=== PATIENT | female | born 1955 | race Caucasian/White ===

== ENCOUNTER 2018-09-01 17:09 | Inpatient (IN) | payer MEDICARE ==
--- NOTE | 2018-09-01 18:31 | NUR ---
PT ARRIVED FROM DR TAN'S OFFICE A DIRECT ADMIT, IV STARTED TO RIGHT FA. SHE IS ALERT AND ORIENTED X3, CALL LIGHT PLACED IN REACH, WILL CONTINUE TO MONITOR AND FOLLOW PLAN OF CARE.
[2018-09-01 19:09] LABS: INR 0.91 (0.85-1.17); PROTIME 11.8 SECONDS (11.6-15.0)
[2018-09-01 19:10] LABS: BASOPHILS 0.6 % (0-2); EOSINOPHILS 0.1 % (0-7); HEMATOCRIT 37.1 % (36.0-48.0); HEMOGLOBIN 12.8 g/dL (12-16); IMMATURE GRANULOCYTES 0.1 % (0-5); LYMPHOCYTES 14.8 % (15-50); MCH 34.8 pg (26.0-34.0); MCHC 34.5 g/dL (31.0-37.0); MCV 100.8 fL (80.0-100.0); MONOCYTES 10.5 % (2-11); NEUTROPHILS 73.9 % (40-80); PLATELET COUNT 328 10x3/uL (130-400); RBC 3.68 10x6/uL (4.00-5.40); RDW 12.8 % (11.5-14.5)
[2018-09-01 19:29] LABS: ALBUMIN 3.6 g/dL (3.4-5.0); ALKALINE PHOSPHATASE 56 U/L (46-116); ALT (SGPT) 37 U/L (10-68); BILIRUBIN - TOTAL 0.23 mg/dL (0.2-1.3); C-REACTIVE PROTEIN 2.3 mg/dL (0.0-0.9); CALC OSMOLALITY 276 mosm/kg (275-300); CALCIUM 9.5 mg/dL (8.5-10.1); CARBON DIOXIDE 21.9 mmol/L (21.0-32.0); CHLORIDE - SERUM 101 mmol/L (98-107); CREATININE - SERUM 0.6 mg/dL (0.6-1.3); GLUCOSE 165 mg/dL (74-106); MAGNESIUM - SERUM 1.5 mg/dL (1.8-2.4); PHOSPHOROUS 2.1 mg/dL (2.5-4.9); POTASSIUM - SERUM 3.8 mmol/L (3.5-5.1); PROTEIN - SERUM 6.8 g/dL (6.4-8.2); SODIUM 136 mmol/L (136-145); THYROID STIMULATING HORMONE 0.77 uIU/mL (0.36-3.74); UREA NITROGEN 14 mg/dL (7-18); eGFR NON AFRICAN AMERICAN > 90 mL/min (90-120)
--- NOTE | 2018-09-01 19:45 | NUR ---
TOOK REPORT AT 1920. NURSE SAID PT HAD NOT BEEN SEEN BY HER. I HAVE GLEANED INFO ON PT AND SEEN HER AT THIS TIME PT IS IN ISOLATION FOR POSSIBLE TB. BED IS LOW AND LOCKED CALL LIGHT WAS PROVIDED BY ME. LCTA SKIN IS WARM AND DRY BOWEL SOUNDS X4 PT DENIES ANY PAIN OR NEEDS AT THIS TIME. IV TO RT WRIST CONVRTRD AND NOW RUNNING NORMAL SALINE AT 125CC/HR. EDUCATION PROVIDED AND AWARE STOOL AND URINE ARE NEEDED
[2018-09-01 20:04] LABS: COMPLEMENT C4 25.1 mg/dL (17.4-52.2)
[2018-09-01 20:20] LABS: ERYTHROCYTE SEDIMENTATION RATE 39 mm/hr (0-30)
[2018-09-02] VITALS: BP 144/66
[2018-09-02 04:00] VITALS: BP 147/72
[2018-09-02 05:33] LABS: BASOPHILS 0.5 % (0-2); EOSINOPHILS 0.3 % (0-7); HEMATOCRIT 34.7 % (36.0-48.0); HEMOGLOBIN 11.8 g/dL (12-16); IMMATURE GRANULOCYTES 0.5 % (0-5); LYMPHOCYTES 54.2 % (15-50); MCH 34.5 pg (26.0-34.0); MCV 101.5 fL (80.0-100.0); MEAN PLATELET VOLUME 9.4 fL (7.4-10.4); MONOCYTES 4.2 % (2-11); NEUTROPHILS 40.3 % (40-80); RBC 3.42 10x6/uL (4.00-5.40); RDW 12.8 % (11.5-14.5)
[2018-09-02 05:34] LABS: PLATELET COUNT 122 10x3/uL (130-400); WBC 3.8 10x3/uL (4.8-10.8)
[2018-09-02 05:46] LABS: % SATURATION 39 % (15-55); IRON 95 ug/dl (35-150); TOTAL IRON BIND CAPACITY 239 ug/dl (260-445); UNSAT IRON BIND CAPACITY 144 ug/dl (150-375)
[2018-09-02 05:49] LABS: ALBUMIN 3.2 g/dL (3.4-5.0); ALKALINE PHOSPHATASE 51 U/L (46-116); ALT (SGPT) 31 U/L (10-68); AMYLASE - SERUM 29 U/L (25-115); BILIRUBIN - TOTAL 0.37 mg/dL (0.2-1.3); CALCIUM 9.1 mg/dL (8.5-10.1); CARBON DIOXIDE 23.3 mmol/L (21.0-32.0); CHLORIDE - SERUM 106 mmol/L (98-107); CREATININE - SERUM 0.6 mg/dL (0.6-1.3); LIPASE 124 U/L (73-393); PROTEIN - SERUM 6.6 g/dL (6.4-8.2); SODIUM 141 mmol/L (136-145); eGFR NON AFRICAN AMERICAN > 90 mL/min (90-120)
[2018-09-02 05:50] LABS: CALC OSMOLALITY 279 mosm/kg (275-300); GLUCOSE 96 mg/dL (74-106); UREA NITROGEN 9 mg/dL (7-18)
--- NOTE | 2018-09-02 07:50 | NUR ---
PT SITTING ON SIDE OF BED, SHIFT ASSESSMENT PERFORMED, DENIES ANY NEEDS AT THIS TIME, WILL CONT TO FOLLOW POC
[2018-09-02 08:18] VITALS: BP 128/70
--- NOTE | 2018-09-02 11:01 | NUR ---
APPROACHED PT ROOM AND ENTERED WITHOUT ANY PPE. THEN STEPPED OUT OF THE PT ROOM, GRABBED THE AIRBORNE SIGN OFF THE PT DOOR AND THREW IT ON THE NURSES STATION STATING, "SHE DOES NOT HAVE TB!" NURSE CALLED PORSHA WITH INFECTION CONTROL. PER INFECTION CONTROL, PT IS TO REMAIN ON AIRBORNE ISOLATION UNTIL PT IS SEEN BY THEN CAN MAKE THE DECISION ON WHICH ISOLATION IS APPROPRIATE FOR PT.
[2018-09-02 11:05] LABS: APPEARANCE CLEAR (CLEAR); BILIRUBIN NEGATIVE (NEGATIVE); COLOR STRAW (YELLOW); GLUCOSE NEGATIVE (NEGATIVE); KETONE NEGATIVE (NEGATIVE); NITRITE NEGATIVE (NEGATIVE); PROTEIN NEGATIVE (NEGATIVE); SPECIFIC GRAVITY 1.005 (1.005-1.020); UROBILINOGEN NORMAL (NORMAL)
[2018-09-02 11:51] VITALS: BP 141/66
--- NOTE | 2018-09-02 12:40 | NUR ---
PT RESTING IN BED, DENIES ANY NEEDS AT THIS TIME, WILL CONT TO FOLLOW POC
--- NOTE | 2018-09-02 17:41 | MORECARE ---
CASE MANAGEMENT DISCHARGE SUMMARY PATIENT: ANGELICA LEE UNIT: [id number] ADM DATE: 09/01/18 AGE: 63 : 57 SEX: F ROOM/BED: D.2148 AUTHOR: ANDREW,DOC PHYSICIAN: REFERRING PHYSICIAN: COOKIE TAN MD DATE OF SERVICE: 09/02/18 Discharge Plan Patient Name: ANGELICA LEE Facility: [facility]:[place] : 1955 Planned Disposition: Home Anticipated Discharge Date: Discharge Date: Expected LOS: Initial Reviewer: [id number] Initial Review Date: 09/02/2018 Generated: 09/02/18 6:41 pm Comments DCP- Discharge Planning Updated by [id number]: Jose Lee on 09/02/18 4:[address] Patient Name: ANGELICA LEE Admission Status: Elective Accout number: [id number] Admission Date: 09-01-2018 : 1955 Admission Diagnosis:NONTRAUMATIC SUBDURAL HEMORRHAGE, UNSPECIFIED Attending: COOKIE TAN Current LOS: 1 Anticipated DC Date: Planned Disposition: Home Primary Insurance: [facility] [employer] Discharge Planning Comments: CM RECEIVED ORDER STATING TO CONTACT PT'S HOME HEALTH PROVIDER. CM MET WITH PT IN ROOM TO DISCUSS DISCHARGE PLANNING AND NEEDS. PT REPORTS LIVING AT HOME INDEPENDENTLY AND ALONE. PT HAS NO MEDICAL EQUIPMENT AND NO OUTSIDE SERVICES ASSISTING IN THE HOME. CM DISCUSSED AVAILABILITY OF HOME HEALTH, REHAB SERVICES AND MEDICAL EQUIPMENT. PT DOES NOT HAVE HOME HEALTH. PT DENIES DISCHARGE NEEDS, STATES HER INSURANCE HOUSECALLS NURSE HAS APPOINTMENT NEXT WEEK AND WOULD LIKE CM TO CANCEL IT PT IS IN THE HOSPITAL. PT REPORTS SHE WILL HAVE TO TAKE A CAB HOME AT DISCHARGE. PT STATES SHE HAS NO SUPPORT SYSTEM AND THAT HER FAMILY HAS "DISOWNED" HER. CM CALLED [facility] [employer], , CANCELLED PT'S HOME NURSE VISIT SCHEDULE FOR 09-06-18. PT PLANS TO DISCHARGE HOME ALONE, DENIES DISCHARGE NEEDS AT THIS TIME, WILL TAKE TAXI HOME. CM TO FOLLOW AND ASSIST IF NEEDED. Raw Mill Operator: Jose Lee DCPIA - Discharge Planning Initial Assessment Updated by [id number]: Jose Lee on 09/02/18 5:36 pm * Is the patient Alert and Oriented? Yes * How many steps to enter\\exit or inside your home? ELEVATOR * PCP DR. TAN * Pharmacy [facility] * Preadmission Environment Home Alone * ADLs Independent * Equipment None * Other Equipment NO MEDICAL EQUIPMENT PROVIDER PREFERENCE * List name and contact numbers for known caregivers / representatives who currently or will assist patient after discharge: FRANCESCO FENTON, BROTHER IN LAW, PHONE UNKNOWN, LIVES IN [place] * Verbal permission to speak to the caregivers and representatives has been obtained from the patient. N/A * Community resources currently utilized None * Please name any agencies selected above. NONE * Additional services required to return to the preadmission environment? No * Can the patient safely return to the preadmission environment? Yes * Has this patient been hospitalized within the prior 30 days at any hospital? No Patient Name: ANGELICA LEE Page [phone] at 1741 All edits/amendments must be made on the electronic document DICTATION DATE: 09/02/181740 ADDICTIONS RECOVERY SPECIALIST: TJ 09/02/181740 RPT#: [id number] DC DATE: STATUS: ADM IN [facility] [address] [place] [address] END OF REPORT
--- NOTE | 2018-09-02 18:00 | NUR ---
CAME BY TO SEE PT AND APPROVED PT TO BE ON NO ISOLATION.
--- NOTE | 2018-09-02 18:05 | NUR ---
PT RESTING IN BED, DENIES ANY NEEDS AT THIS TIME, WILL CONT TO FOLLOW POC
--- NOTE | 2018-09-02 19:49 | NUR ---
AWAKE AND ALERT. SKIN WARM AND DRY BRUISES AROUND ORBITALS AND LAC ON LIP STILL PREVAIL PT REPORTS FEELING MUCH BETTER TODAY. LCTA AND SKIN WARM AND DRY AND BOWEL SOUNDS X4 PULSES INTACT BED IS LOW AND LOCKED AND SR X2 PT IS IN POSESTION OF CALL LIGHT
[2018-09-02 20:00] VITALS: BP 135/69
[2018-09-03] VITALS: BP 144/79
[2018-09-03 04:00] VITALS: BP 153/60
[2018-09-03] MEDS ORDERED: BACLOFEN10 MG PO (05:23)
[2018-09-03] MEDS ORDERED: ULTRAM50 MG PO (05:24)
[2018-09-03] MEDS ORDERED: BUSPAR 15 MG TA15 MG PO (05:26)
[2018-09-03 06:18] LABS: BASOPHILS 0.5 % (0-2); EOSINOPHILS 0.4 % (0-7); HEMATOCRIT 32.9 % (36.0-48.0); HEMOGLOBIN 11.4 g/dL (12-16); IMMATURE GRANULOCYTES 0.2 % (0-5); LYMPHOCYTES 33.5 % (15-50); MCH 34.7 pg (26.0-34.0); MCHC 34.7 g/dL (31.0-37.0); MEAN PLATELET VOLUME 8.7 fL (7.4-10.4); MONOCYTES 12.3 % (2-11); NEUTROPHILS 53.1 % (40-80); RBC 3.29 10x6/uL (4.00-5.40); RDW 12.9 % (11.5-14.5)
[2018-09-03 06:26] LABS: PLATELET COUNT 249 10x3/uL (130-400); WBC 5.5 10x3/uL (4.8-10.8)
[2018-09-03 06:32] LABS: APTT 23.6 SECONDS (22.8-39.4); INR 0.95 (0.85-1.17); PROTIME 12.2 SECONDS (11.6-15.0)
[2018-09-03 06:33] LABS: CALC OSMOLALITY 281 mosm/kg (275-300); CALCIUM 8.9 mg/dL (8.5-10.1); CARBON DIOXIDE 24.3 mmol/L (21.0-32.0); CHLORIDE - SERUM 109 mmol/L (98-107); CREATININE - SERUM 0.6 mg/dL (0.6-1.3); GLUCOSE 104 mg/dL (74-106); MAGNESIUM - SERUM 1.5 mg/dL (1.8-2.4); POTASSIUM - SERUM 3.2 mmol/L (3.5-5.1); SODIUM 143 mmol/L (136-145); eGFR NON AFRICAN AMERICAN > 90 mL/min (90-120)
[2018-09-03 06:36] LABS: PHOSPHOROUS 3.9 mg/dL (2.5-4.9); UREA NITROGEN 3 mg/dL (7-18)
--- NOTE | 2018-09-03 07:19 | NUR ---
PT AWAKE AND ORIENTED. STATES THAT SHE WOULD LIKE HER PAIN MEDICATION SWITCHED TO TRAMADOL, HER HOME MEDICATION, WHICH SHE STATES WORKS REALLY WELL COMPARED TO THE MEDICATION SHE'S BEEN RECIEVING HERE. NO OTHER COMPLAINTS OR CONCERNS AT THIS TIME. CL IN REACH, SRX2.
[2018-09-03 08:12] LABS: HEPATITIS C ANTIBODY <0.1 S/CO RAT (0.0-0.9)
[2018-09-03 09:12] VITALS: BP 134/72
[2018-09-03 09:12] LABS: FOLATE (FOLIC ACID) - SERUM >20.0 ng/mL (>3.0)
--- NOTE | 2018-09-03 10:42 | NUR ---
I have reviewed this patient and I concur with the Shift Assessment completed by the Licensed Practical Nurse today this shift.
[2018-09-03 11:37] VITALS: BP 149/79
[2018-09-03 16:44] VITALS: BP 148/78
--- NOTE | 2018-09-03 19:35 | NUR ---
EVENING ROUNDS COMPLETED. REPORT RECEIVED. PT SITTING UP IN BED WITH EYES OPEN, RR EVEN AND UNLABORED. ORDERED FLUIDS INFUSING THROUGH RIGHT WRIST PIV. INTRODUCED SELF TO PT. PT DENIES FURTHER NEEDS AT THIS TIME. IV TUBING HAS BEEN LABELED AND DATED PER POLICY. NO S/S OF DISTRESS NOTED. CALL LIGHT IN REACH. WILL CTM.
[2018-09-03 20:00] VITALS: BP 129/62
[2018-09-04] VITALS: BP 143/71
[2018-09-04 04:00] VITALS: BP 174/83
--- NOTE | 2018-09-04 05:56 | NUR ---
PT SITTING UP IN BED WITH EYES OPEN, RR EVEN AND UNLABORED, BED IN LOW POSITION. NO S/S OF DISTRESS NOTED. PT DENIES FURTHER NEEDS AT THIS TIME. CALL LIGHT IN REACH. WILL CTM.
[2018-09-04 06:53] LABS: BASOPHILS 0.7 % (0-2); EOSINOPHILS 0.5 % (0-7); IMMATURE GRANULOCYTES 0.2 % (0-5); LYMPHOCYTES 24.9 % (15-50); MCH 34.3 pg (26.0-34.0); MCHC 34.4 g/dL (31.0-37.0); MCV 99.7 fL (80.0-100.0); MEAN PLATELET VOLUME 8.8 fL (7.4-10.4); MONOCYTES 12.7 % (2-11); PLATELET COUNT 230 10x3/uL (130-400); RBC 3.21 10x6/uL (4.00-5.40); RDW 12.9 % (11.5-14.5); WBC 5.8 10x3/uL (4.8-10.8)
[2018-09-04 07:02] LABS: APTT 22.7 SECONDS (22.8-39.4); PROTIME 12.7 SECONDS (11.6-15.0)
[2018-09-04 07:05] LABS: CALC OSMOLALITY 283 mosm/kg (275-300); CALCIUM 9.1 mg/dL (8.5-10.1); CARBON DIOXIDE 26.7 mmol/L (21.0-32.0); CHLORIDE - SERUM 108 mmol/L (98-107); CREATININE - SERUM 0.5 mg/dL (0.6-1.3); GLUCOSE 103 mg/dL (74-106); MAGNESIUM - SERUM 1.6 mg/dL (1.8-2.4); PHOSPHOROUS 4.2 mg/dL (2.5-4.9); POTASSIUM - SERUM 3.4 mmol/L (3.5-5.1); SODIUM 144 mmol/L (136-145); UREA NITROGEN 3 mg/dL (7-18); eGFR NON AFRICAN AMERICAN > 90 mL/min (90-120)
[2018-09-04 07:46] VITALS: BP 161/82
--- NOTE | 2018-09-04 10:01 | NUR ---
I have reviewed this patient and I concur with the Shift Assessment completed by the Licensed Practical Nurse today this shift.
--- NOTE | 2018-09-04 10:19 | NUR ---
PT HAS SEVERAL QUESTIONS THIS A.M. MOSTLY ABOUT HER CONDITION AND WETHER OR NOT SHE HAS TO STAY. PT STATES DR. GONZALES WAS NOT IN LONG ENOUGH TO PROPPERLY ANSWER HER QUESTIONS WHEN SHE TRIED TO AKS THEM AND SHE FELT TOO INTIMIDATED TO ASK HIM TO STAY AND EXPLAIN. PT REQUESTED I COME IN WHEN THE DR DOES NEXT TIME, SO I CAN ASSIST HER IN BEING ASSERTIVE WITH HER QUESTIONS. TOLD PT I WOULD DO MAKE SURE THAT HAPPENED. ANSWERED ALL MEDICAL QUESTIONS TO THE BEST OF MY ABILITY. CL IN REACH, SRX2.
[2018-09-04 11:46] VITALS: BP 148/71
--- NOTE | 2018-09-04 13:56 | NUR ---
PT AWAKE AND ORIENTED. HAS BEEN SNOOZING OFF AND ON ALL DAY. NO FURTHER COMPLAINTS AT THIS TIME, STILL HOPING TO SPEAK TO DR GONZALES LATER AND HAVE HIM ANSWER HER QUESTIONS MORE IN DEPTH. NO CONCERNS/QUESTIONS AT THIS TIME. CL IN REACH, SRX2.
[2018-09-04 15:21] VITALS: BP 130/72
--- NOTE | 2018-09-04 19:00 | NUR ---
EVENING ROUNDS COMPLETED. REPORT RECEIVED. PT SITTING UP IN BED WITH EYES OPEN, RR EVEN AND UNLABORED. NO S/S OF DISTRESS NOTED. INTRODUCED SELF TO PT. PT DENIES FURTHER NEEDS AT THIS TIME. BED IN LOW POSITION. CALL LIGHT IN REACH. WILL CTM.
[2018-09-04 20:00] VITALS: BP 152/80
[2018-09-05 00:11] VITALS: BP 158/83
--- NOTE | 2018-09-05 03:29 | NUR ---
I have reviewed this patient and I concur with the Shift Assessment completed by the Licensed Practical Nurse today this shift.
[2018-09-05 04:00] VITALS: BP 142/76
[2018-09-05 06:24] LABS: BASOPHILS 0.5 % (0-2); EOSINOPHILS 0.7 % (0-7); HEMATOCRIT 32.8 % (36.0-48.0); HEMOGLOBIN 10.9 g/dL (12-16); IMMATURE GRANULOCYTES 0.3 % (0-5); MCH 34.1 pg (26.0-34.0); MCHC 33.2 g/dL (31.0-37.0); MEAN PLATELET VOLUME 8.9 fL (7.4-10.4); MONOCYTES 11.3 % (2-11); NEUTROPHILS 57.2 % (40-80); PLATELET COUNT 259 10x3/uL (130-400); WBC 5.9 10x3/uL (4.8-10.8)
--- NOTE | 2018-09-05 06:24 | NUR ---
PT SITTING UP IN BED WITH EYES OPEN, RR EVEN AND UNLABORED. BED IN LOW POSITION. DENIES FURTHER NEEDS AT THIS TIME. NO S/S OF DISTRESS NOTED. CALL LIGHT IN REACH. WILL CTM.
[2018-09-05 06:34] LABS: CALC OSMOLALITY 285 mosm/kg (275-300); CALCIUM 8.6 mg/dL (8.5-10.1); CARBON DIOXIDE 31.6 mmol/L (21.0-32.0); CHLORIDE - SERUM 107 mmol/L (98-107); CREATININE - SERUM 0.6 mg/dL (0.6-1.3); GLUCOSE 103 mg/dL (74-106); MAGNESIUM - SERUM 1.9 mg/dL (1.8-2.4); POTASSIUM - SERUM 3.5 mmol/L (3.5-5.1); SODIUM 145 mmol/L (136-145); eGFR NON AFRICAN AMERICAN > 90 mL/min (90-120)
[2018-09-05 06:35] LABS: APTT 24.1 SECONDS (22.8-39.4); PROTIME 12.7 SECONDS (11.6-15.0)
[2018-09-05 06:37] LABS: UREA NITROGEN 4 mg/dL (7-18)
[2018-09-05 06:39] LABS: MCV 102.5 fL (80.0-100.0)
--- NOTE | 2018-09-05 07:23 | NUR ---
PT AWKAE AND ORIENTED. STATES SHE FEELS OK, BUT WILL BE HAPPY WHEN THE HOSPITAL STAY IS OVER. NO COMPLAINTS/CONCERNS/QUESTIONS OR COMMENTS THIS MORNING. CL IN REACH, SRX2.
[2018-09-05 09:01] VITALS: BP 144/75
[2018-09-05 09:08] LABS: HSV 1 DNA (PCR) Negative (Negative); HSV 2 DNA (PCR) Negative (Negative)
[2018-09-05 11:41] VITALS: BP 157/88
[2018-09-05 13:10] LABS: ERYTHROPOIETIN 38.3 mIU/mL (2.6-18.5)
--- NOTE | 2018-09-05 13:36 | MORECARE ---
CASE MANAGEMENT DISCHARGE SUMMARY PATIENT: ANGELICA LEE UNIT: [id number] ADM DATE: 09/01/18 AGE: 63 : 57 SEX: F ROOM/BED: D.2140 AUTHOR: TEO MORALES PHYSICIAN: REFERRING PHYSICIAN: COOKIE TAN MD DATE OF SERVICE: 09/05/18 Discharge Plan Patient Name: ANGELICA LEE Facility: [facility]:[place] : 1955 Planned Disposition: Home Anticipated Discharge Date: Discharge Date: Expected LOS: Initial Reviewer: [id number] Initial Review Date: 09/02/2018 Generated: 09/05/18 2:36 pm Comments DCP- Discharge Planning Updated by [id number]: An Rosas on 09/05/18 12:[address] SHAH CAME TO ME ASKING WHAT THE STATUS IS ON THE PATIENT. I EXPAINED THAT I DID NOT KNOW MUCH, BUT IT WAS DOCUMENTED PT WAITING ON BED AT [facility] AND THEN SHE REFUSED. PER DR SHAH, THE PATIENT DID NOT REFUSE, AND THIS HAS BEEN CONFIRMED. WILL WORK ON TRANSFER, BUT FIRST HAVE TO FIGURE OUT WHAT HAS BEEN DONE IN REGARDS TO THIS. I PLACED A CALL TO JASON HARDINOFFICE CASHIER, WHO STATED SHE WAS UNAWARE OF THE TRANSFER, BUT GAVE ADMIN AUTH FOR TRANSFER. @2229 I PLACED A CALL TO [facility] BED JOAQUIM JAUREGUI TRANSFERRED ME TO THE TRANSFER TEAM AT THE CALL CENTER TO CHECK ON THIS. I SPOKE WITH JASSON WHO STATED SHE DOES NOT SEE THAT ANYTHING HAS BEEN STARTED ON THE PATIENT FOR TRANSFER, BUT THEY WOULD BE GLAD TO ASSIST. I STATED THAT I WAS GOING TO HAVE TO FIGURE OUT WHO WOULD DO THE DOC TO DOC FIRST AND CALL BACK. I PAGED DOUG WHITFIELD AFTER I HUNG UP THE PHONE. @7098 I SPOKE WITH NAHID SOLANO APN FOR [facility]. I ASKED IF DR RIVERA WOULD DO THE DOC TO DOC. NAHID QUESTIONED TO WHY NOTHING HAD BEEN DONE ABOUT THIS LAST WEEK. I EXPLAINED THAT NO ONE TALKED TO ME ABOUT TRANSFER LAST WEEK, THAT THE BEST I KNEW IT WAS INITIATED OVER THE WEEKEND (TRUTH IS, IT WAS DECIDED THAT THE PATIENT NEEDED TO TRANSFER AFTER 1600 ON WEDNESDAY AND I HAD ALREADY LEFT. PER OSCAR, CM NO ONE DISCUSSED WITH HIM ABOUT TRANSFERRING AND THERE WAS NO ORDER PUT IN FOR CASEMANAGEMENT TO TRANSFER- SO I AM UNSURE WHO DR GONZALES TALKED TO OVER THE WEEKEND THAT SAID WE WERE JUST WAITING ON A BED HE DOCUMENTED IN HIS NOTE). NAHID STATED THAT THE PATIENT WAS NEW TO THEM AND THEY WERE GOING TO HAVE TO LOOK AT THE PATIENT FIRST AND THEY WOULD HAVE TO LET ME KNOW. I WILL WAIT FOR FURTHER INSTRUCTION IN REGARDS TO TRANSFER. DCP- Discharge Planning Updated by [id number]: Jose Lee on 09/02/18 4:[address] Patient Name: ANGELICA LEE Admission Status: Elective Accout number: [id number] Admission Date: 09-01-2018 : 1955 Admission Diagnosis:NONTRAUMATIC SUBDURAL HEMORRHAGE, UNSPECIFIED Attending: COOKIE TAN Current LOS: 1 Anticipated DC Date: Planned Disposition: Home Primary Insurance: [facility] [employer] Discharge Planning Comments: CM RECEIVED ORDER STATING TO CONTACT PT'S HOME HEALTH PROVIDER. CM MET WITH PT IN ROOM TO DISCUSS DISCHARGE PLANNING AND NEEDS. PT REPORTS LIVING AT HOME INDEPENDENTLY AND ALONE. PT HAS NO MEDICAL EQUIPMENT AND NO OUTSIDE SERVICES ASSISTING IN THE HOME. CM DISCUSSED AVAILABILITY OF HOME HEALTH, REHAB SERVICES AND MEDICAL EQUIPMENT. PT DOES NOT HAVE HOME HEALTH. PT DENIES DISCHARGE NEEDS, STATES HER INSURANCE HOUSECALLS NURSE HAS APPOINTMENT NEXT WEEK AND WOULD LIKE CM TO CANCEL IT PT IS IN THE HOSPITAL. PT REPORTS SHE WILL HAVE TO TAKE A CAB HOME AT DISCHARGE. PT STATES SHE HAS NO SUPPORT SYSTEM AND THAT HER FAMILY HAS "DISOWNED" HER. CM CALLED [facility] [employer] [facility], , CANCELLED PT'S HOME NURSE VISIT SCHEDULE FOR 09-06-18. PT PLANS TO DISCHARGE HOME ALONE, DENIES DISCHARGE NEEDS AT THIS TIME, WILL TAKE TAXI HOME. CM TO FOLLOW AND ASSIST IF NEEDED. Trimmer Operator: Jose Lee DCPIA - Discharge Planning Initial Assessment Updated by [id number]: Jose Lee on 09/02/18 5:36 pm * Is the patient Alert and Oriented? Yes * How many steps to enter\\exit or inside your home? ELEVATOR * PCP DR. TAN * Pharmacy [facility] * Preadmission Environment Home Alone * ADLs Independent * Equipment None * Other Equipment NO MEDICAL EQUIPMENT PROVIDER PREFERENCE * List name and contact numbers for known caregivers / representatives who currently or will assist patient after discharge: FRANCESCO FENTON, BROTHER IN LAW, PHONE UNKNOWN, LIVES IN [place] * Verbal permission to speak to the caregivers and representatives has been obtained from the patient. N/A * Community resources currently utilized None * Please name any agencies selected above. NONE * Additional services required to return to the preadmission environment? No * Can the patient safely return to the preadmission environment? Yes * Has this patient been hospitalized within the prior 30 days at any hospital? No Last DP export: 09/02/18 4:41 p Patient Name: ANGELICA LEE Page [phone] at 1336 All edits/amendments must be made on the electronic document DICTATION DATE: 09/05/181334 TEASELER: TJ 09/05/181334 RPT#: [id number] DC DATE: STATUS: ADM IN [facility] [address] [place] [address] END OF REPORT
--- NOTE | 2018-09-05 14:08 | NUR ---
NUTRITION F/U CHART REVIEWED. PT VISIT. TOLERATING REG DIET WITH GOOD INTAKE BREAKFAST. PT REPORTS IMPROVING PO INTAKE. STATES SHE IS "JUST NOW STARTING TO ADD MEAT" TO HER MEALS. WILL CONTINUE TO PROVIDE DIET, HONOR FOOD PREFERENCES, MONITOR PO INTAKE. RD FOLLOWING
--- NOTE | 2018-09-05 14:29 | MORECARE ---
CASE MANAGEMENT DISCHARGE SUMMARY PATIENT: ANGELICA LEE UNIT: [id number] ADM DATE: 09/01/18 AGE: 63 : 57 SEX: F ROOM/BED: D.2148 AUTHOR: TEO MORALES PHYSICIAN: REFERRING PHYSICIAN: COOKIE TAN MD DATE OF SERVICE: 09/05/18 Discharge Plan Patient Name: ANGELICA LEE Facility: [facility]:[place] : 1955 Planned Disposition: Home Anticipated Discharge Date: Discharge Date: Expected LOS: Initial Reviewer: [id number] Initial Review Date: 09/02/2018 Generated: 09/05/18 3:28 pm Comments DCP- Discharge Planning Updated by [id number]: An Rosas on 09/05/18 1:[address] @[id number] SMITH CAME AND GAVE ME DR YO RIVERA NAME AND PHONE NUMBER FOR THE DOC TO DOC WITH TRANSFER. @ 7287 PLACED A CALL TO THE [facility] PHYSICIAN CALL CENTER ([phone]), SPOKE TO JASSON WHO TOOK THE BASIC INFORMATION AND THEN TRANSFERRED ME TO THE NURSE NEHEMIAH. I ANSWERED ALL HER QUESTIONS AND READ HER EXACTLY WHAT WAS DOCUMENTED IN THE PHYSICIANS NOTES. SHE STILL REQUIRED MORE INFORMATION. SHE STATED THAT SHE WOULD CALL AND SPEAK TO THE DOCTOR BEFORE SHE NOTIFIED HER DOCTOR. AFTER CALL WAS ENDED, I WALKED OVER AND LET DR RIVERA KNOW WHAT SHE HAS SAID. I WILL WAIT FOR A RETURN CALL OR FURTHER INSTRUCTIONS BY DR RIVERA OR NAHID SOLANO APN. DCP- Discharge Planning Updated by [id number]: An Rosas on 09/05/18 12:[address] SHAH CAME TO ME ASKING WHAT THE STATUS IS ON THE PATIENT. I EXPAINED THAT I DID NOT KNOW MUCH, BUT IT WAS DOCUMENTED PT WAITING ON BED AT [facility] AND THEN SHE REFUSED. PER DR SHAH, THE PATIENT DID NOT REFUSE, AND THIS HAS BEEN CONFIRMED. WILL WORK ON TRANSFER, BUT FIRST HAVE TO FIGURE OUT WHAT HAS BEEN DONE IN REGARDS TO THIS. I PLACED A CALL TO JASON HARDINPLATE KEEPER, WHO STATED SHE WAS UNAWARE OF THE TRANSFER, BUT GAVE ADMIN AUTH FOR TRANSFER. @5320 I PLACED A CALL TO [facility] JOAQUIM SALES TRANSFERRED ME TO THE TRANSFER TEAM AT THE CALL CENTER TO CHECK ON THIS. I SPOKE WITH JASSON WHO STATED SHE DOES NOT SEE THAT ANYTHING HAS BEEN STARTED ON THE PATIENT FOR TRANSFER, BUT THEY WOULD BE GLAD TO ASSIST. I STATED THAT I WAS GOING TO HAVE TO FIGURE OUT WHO WOULD DO THE DOC TO DOC FIRST AND CALL BACK. I PAGED DOUG WHITFIELD AFTER I HUNG UP THE PHONE. @1150 I SPOKE WITH NAHID SOLANO AP[facility] FOR [facility]. I ASKED IF DR RIVERA WOULD DO THE DOC TO DOC. NAHID QUESTIONED TO WHY NOTHING HAD BEEN DONE ABOUT THIS LAST WEEK. I EXPLAINED THAT NO ONE TALKED TO ME ABOUT TRANSFER LAST WEEK, THAT THE BEST I KNEW IT WAS INITIATED OVER THE WEEKEND (TRUTH IS, IT WAS DECIDED THAT THE PATIENT NEEDED TO TRANSFER AFTER 1600 ON WEDNESDAY AND I HAD ALREADY LEFT. PER LOUIS MOORE NO ONE DISCUSSED WITH HIM ABOUT TRANSFERRING AND THERE WAS NO ORDER PUT IN FOR CASEMANAGEMENT TO TRANSFER- SO I AM UNSURE WHO DR GONZALES TALKED TO OVER THE WEEKEND THAT SAID WE WERE JUST WAITING ON A BED HE DOCUMENTED IN HIS NOTE). NAHID STATED THAT THE PATIENT WAS NEW TO THEM AND THEY WERE GOING TO HAVE TO LOOK AT THE PATIENT FIRST AND THEY WOULD HAVE TO LET ME KNOW. I WILL WAIT FOR FURTHER INSTRUCTION IN REGARDS TO TRANSFER. DCP- Discharge Planning Updated by [id number]: Jose Lee on 09/02/18 4:[address] Patient Name: ANGELICA LEE Admission Status: Elective Accout number: [id number] Admission Date: 09-01-2018 : 1955 Admission Diagnosis:NONTRAUMATIC SUBDURAL HEMORRHAGE, UNSPECIFIED Attending: COOKIE TAN Current LOS: 1 Anticipated DC Date: Planned Disposition: Home Primary Insurance: [facility] [employer] Discharge Planning Comments: CM RECEIVED ORDER STATING TO CONTACT PT'S HOME HEALTH PROVIDER. CM MET WITH PT IN ROOM TO DISCUSS DISCHARGE PLANNING AND NEEDS. PT REPORTS LIVING AT HOME INDEPENDENTLY AND ALONE. PT HAS NO MEDICAL EQUIPMENT AND NO OUTSIDE SERVICES ASSISTING IN THE HOME. CM DISCUSSED AVAILABILITY OF HOME HEALTH, REHAB SERVICES AND MEDICAL EQUIPMENT. PT DOES NOT HAVE HOME HEALTH. PT DENIES DISCHARGE NEEDS, STATES HER INSURANCE HOUSECALLS NURSE HAS APPOINTMENT NEXT WEEK AND WOULD LIKE CM TO CANCEL IT PT IS IN THE HOSPITAL. PT REPORTS SHE WILL HAVE TO TAKE A CAB HOME AT DISCHARGE. PT STATES SHE HAS NO SUPPORT SYSTEM AND THAT HER FAMILY HAS "DISOWNED" HER. CM CALLED [facility], , CANCELLED PT'S HOME NURSE VISIT SCHEDULE FOR 09-06-18. PT PLANS TO DISCHARGE HOME ALONE, DENIES DISCHARGE NEEDS AT THIS TIME, WILL TAKE TAXI HOME. CM TO FOLLOW AND ASSIST IF NEEDED. Broadcast Technician: Jose Lee DCPIA - Discharge Planning Initial Assessment Updated by [email or web address]: Jose Lee on 09/02/18 5:36 pm * Is the patient Alert and Oriented? Yes * How many steps to enter\\exit or inside your home? ELEVATOR * PCP DR. TAN * Pharmacy [facility] * Preadmission Environment Home Alone * ADLs Independent * Equipment None * Other Equipment NO MEDICAL EQUIPMENT PROVIDER PREFERENCE * List name and contact numbers for known caregivers / representatives who currently or will assist patient after discharge: FRANCESCO FENTON, BROTHER IN LAW, PHONE UNKNOWN, LIVES IN [place] * Verbal permission to speak to the caregivers and representatives has been obtained from the patient. N/A * Community resources currently utilized None * Please name any agencies selected above. NONE * Additional services required to return to the preadmission environment? No * Can the patient safely return to the preadmission environment? Yes * Has this patient been hospitalized within the prior 30 days at any hospital? No Last DP export: 09/05/18 12:36 p Patient Name: ANGELICA LEE Page [phone] at 1429 All edits/amendments must be made on the electronic document DICTATION DATE: 09/05/181427 MEDICAL DATA ENTRY CLERK: TJ 09/05/181427 RPT#: [id number] DC DATE: STATUS: ADM IN [facility] [address] [place] [address] END OF REPORT
--- NOTE | 2018-09-05 14:55 | MORECARE ---
CASE MANAGEMENT DISCHARGE SUMMARY PATIENT: ANGELICA LEE UNIT: [id number] ADM DATE: 09/01/18 AGE: 63 : 57 SEX: F ROOM/BED: D.2140 AUTHOR: TEO MORALES PHYSICIAN: REFERRING PHYSICIAN: COOKIE TAN MD DATE OF SERVICE: 09/05/18 Discharge Plan Patient Name: ANGELICA LEE Facility: [facility]:[place] : 1955 Planned Disposition: Home Anticipated Discharge Date: Discharge Date: Expected LOS: Initial Reviewer: [id number] Initial Review Date: 09/02/2018 Generated: 09/05/18 3:55 pm Comments DCP- Discharge Planning Updated by [email or web address]: An Rosas on 09/05/18 1:[address] PATIENT HAS BEEN ACCEPTED BY DR MIRZA AT [facility]. THEY WILL CALL BACK FOR ANY INFORMATION NEEDED. PHYSICIAN CERTIFICATION TRANSFER AUTH FORM COMPLETED BY DR RIVERA, AND PLACED ON THE FRONT OF THE CHART. WILL WAIT FOR [facility] CALL BACK. DCP- Discharge Planning Updated by [id number]: An Rosas on 09/05/18 1:[address] @2540NAHID SMITH CAME AND GAVE ME DR YO RIVERA NAME AND PHONE NUMBER FOR THE DOC TO DOC WITH TRANSFER. @ 1595 PLACED A CALL TO THE [facility] PHYSICIAN CALL CENTER ([phone]), SPOKE TO JASSON WHO TOOK THE BASIC INFORMATION AND THEN TRANSFERRED ME TO THE NURSE NEHEMIAH. I ANSWERED ALL HER QUESTIONS AND READ HER EXACTLY WHAT WAS DOCUMENTED IN THE PHYSICIANS NOTES. SHE STILL REQUIRED MORE INFORMATION. SHE STATED THAT SHE WOULD CALL AND SPEAK TO THE DOCTOR BEFORE SHE NOTIFIED HER DOCTOR. AFTER CALL WAS ENDED, I WALKED OVER AND LET DR RIVERA KNOW WHAT SHE HAS SAID. I WILL WAIT FOR A RETURN CALL OR FURTHER INSTRUCTIONS BY DR RIVERA OR NAHID SOLANO APN. DCP- Discharge Planning Updated by [id number]: An Rosas on 09/05/18 12:[address] SHAH CAME TO ME ASKING WHAT THE STATUS IS ON THE PATIENT. I EXPAINED THAT I DID NOT KNOW MUCH, BUT IT WAS DOCUMENTED PT WAITING ON BED AT [facility] AND THEN SHE REFUSED. PER DR SHAH, THE PATIENT DID NOT REFUSE, AND THIS HAS BEEN CONFIRMED. WILL WORK ON TRANSFER, BUT FIRST HAVE TO FIGURE OUT WHAT HAS BEEN DONE IN REGARDS TO THIS. I PLACED A CALL TO JASON HARDINSUPERVISOR SMOKE CONTROL, WHO STATED SHE WAS UNAWARE OF THE TRANSFER, BUT GAVE ADMIN AUTH FOR TRANSFER. @9505 I PLACED A CALL TO [facility] BED SHANIA, JOAQUIM TRANSFERRED ME TO THE TRANSFER TEAM AT THE CALL CENTER TO CHECK ON THIS. I SPOKE WITH JASSON WHO STATED SHE DOES NOT SEE THAT ANYTHING HAS BEEN STARTED ON THE PATIENT FOR TRANSFER, BUT THEY WOULD BE GLAD TO ASSIST. I STATED THAT I WAS GOING TO HAVE TO FIGURE OUT WHO WOULD DO THE DOC TO DOC FIRST AND CALL BACK. I PAGED DOUG WHITFIELD AFTER I HUNG UP THE PHONE. @1150 I SPOKE WITH NAHID SOLANO APN FOR [employer]. I ASKED IF DR RIVERA WOULD DO THE DOC TO DOC. NAHID QUESTIONED TO WHY NOTHING HAD BEEN DONE ABOUT THIS LAST WEEK. I EXPLAINED THAT NO ONE TALKED TO ME ABOUT TRANSFER LAST WEEK, THAT THE BEST I KNEW IT WAS INITIATED OVER THE WEEKEND (TRUTH IS, IT WAS DECIDED THAT THE PATIENT NEEDED TO TRANSFER AFTER 1600 ON WEDNESDAY AND I HAD ALREADY LEFT. PER LOUIS MOORE NO ONE DISCUSSED WITH HIM ABOUT TRANSFERRING AND THERE WAS NO ORDER PUT IN FOR CASEMANAGEMENT TO TRANSFER- SO I AM UNSURE WHO DR GONZALES TALKED TO OVER THE WEEKEND THAT SAID WE WERE JUST WAITING ON A BED HE DOCUMENTED IN HIS NOTE). NAHID STATED THAT THE PATIENT WAS NEW TO THEM AND THEY WERE GOING TO HAVE TO LOOK AT THE PATIENT FIRST AND THEY WOULD HAVE TO LET ME KNOW. I WILL WAIT FOR FURTHER INSTRUCTION IN REGARDS TO TRANSFER. DCP- Discharge Planning Updated by [id number]: Jose Lee on 09/02/18 4:[address] Patient Name: ANGELICA LEE Admission Status: Elective Accout number: [id number] Admission Date: 09-01-2018 : 1955 Admission Diagnosis:NONTRAUMATIC SUBDURAL HEMORRHAGE, UNSPECIFIED Attending: COOKIE TAN Current LOS: 1 Anticipated DC Date: Planned Disposition: Home Primary Insurance: [facility] MEDICARE SOLUTIONS Discharge Planning Comments: CM RECEIVED ORDER STATING TO CONTACT PT'S HOME HEALTH PROVIDER. CM MET WITH PT IN ROOM TO DISCUSS DISCHARGE PLANNING AND NEEDS. PT REPORTS LIVING AT HOME INDEPENDENTLY AND ALONE. PT HAS NO MEDICAL EQUIPMENT AND NO OUTSIDE SERVICES ASSISTING IN THE HOME. CM DISCUSSED AVAILABILITY OF HOME HEALTH, REHAB SERVICES AND MEDICAL EQUIPMENT. PT DOES NOT HAVE HOME HEALTH. PT DENIES DISCHARGE NEEDS, STATES HER INSURANCE HOUSECALLS NURSE HAS APPOINTMENT NEXT WEEK AND WOULD LIKE CM TO CANCEL IT PT IS IN THE HOSPITAL. PT REPORTS SHE WILL HAVE TO TAKE A CAB HOME AT DISCHARGE. PT STATES SHE HAS NO SUPPORT SYSTEM AND THAT HER FAMILY HAS "DISOWNED" HER. CM CALLED [facility], , CANCELLED PT'S HOME NURSE VISIT SCHEDULE FOR 09-06-18. PT PLANS TO DISCHARGE HOME ALONE, DENIES DISCHARGE NEEDS AT THIS TIME, WILL TAKE TAXI HOME. CM TO FOLLOW AND ASSIST IF NEEDED. Sewing Machine Operator Paper Bags: Jose Lee DCPIA - Discharge Planning Initial Assessment Updated by [id number]: Jose Lee on 09/02/18 5:36 pm * Is the patient Alert and Oriented? Yes * How many steps to enter\\exit or inside your home? ELEVATOR * PCP DR. TAN * Pharmacy [facility] * Preadmission Environment Home Alone * ADLs Independent * Equipment None * Other Equipment NO MEDICAL EQUIPMENT PROVIDER PREFERENCE * List name and contact numbers for known caregivers / representatives who currently or will assist patient after discharge: FRANCESCO FENTON, BROTHER IN LAW, PHONE UNKNOWN, LIVES IN [place] * Verbal permission to speak to the caregivers and representatives has been obtained from the patient. N/A * Community resources currently utilized None * Please name any agencies selected above. NONE * Additional services required to return to the preadmission environment? No * Can the patient safely return to the preadmission environment? Yes * Has this patient been hospitalized within the prior 30 days at any hospital? No Last DP export: 09/05/18 1:28 p Patient Name: ANGELICA LEE Page [id number] at 1459 All edits/amendments must be made on the electronic document DICTATION DATE: 09/05/181454 AGENCY LEGAL COUNSEL: TJ 09/05/181454 RPT#: [id number] DC DATE: STATUS: ADM IN [facility] [address] [place] [address] END OF REPORT
--- NOTE | 2018-09-05 16:01 | NUR ---
I have reviewed this patient and I concur with the Shift Assessment completed by the Licensed Practical Nurse today this shift.
[2018-09-05] MEDS ORDERED: VALTREX500 MG PO (17:40)
[2018-09-05] MEDS ORDERED: ALBUTEROL1.25 MG/3 UPD (17:40)
[2018-09-05] MEDS ORDERED: LEVAQUIN750 MG PO (17:40)
[2018-09-05] MEDS ORDERED: LEXAPRO10 MG PO (17:41)
[2018-09-05] MEDS ORDERED: ACETAMINOPHEN325 MG PO (17:41)
[2018-09-05] MEDS ORDERED: FLORAJEN3 CAPS460 MG PO (17:41)
[2018-09-05] MEDS ORDERED: BACTROBAN CREAM15 GM TOPICAL (17:42)
[2018-09-05] MEDS ORDERED: PROTONIX40 MG PO (17:42)
[2018-09-05] MEDS ORDERED: ONCOLOGY MOUTHWASH PO (17:43)
[2018-09-05] MEDS ORDERED: ZOFRAN4 MG PO (17:45)
--- NOTE | 2018-09-05 18:04 | NUR ---
CASE MANAGMENT FROM [facility] CALLED AND STATED THAT THEY DID NOT NEED A TRANSFER BACK AGREEMENT. AMBULANCE CALLED, WOULD NOT BE HERE FOR 1-2 HOURS.
[2018-09-05 20:00] VITALS: BP 143/68
--- NOTE | 2018-09-05 22:05 | NUR ---
PATIENT PICKED UP BY [facility] TO BE TRANSPORTED TO [facility].
--- NOTE | 2018-09-06 09:15 | MORECARE ---
CASE MANAGEMENT DISCHARGE SUMMARY PATIENT: ANGELICA LEE UNIT: [id number] ADM DATE: 09/01/18 AGE: 63 : 57 SEX: F ROOM/BED: D.2140 AUTHOR: TEO MORALES PHYSICIAN: REFERRING PHYSICIAN: COOKIE TAN MD DATE OF SERVICE: 09/06/18 Discharge Plan Patient Name: ANGELICA LEE Facility: [facility]:[place] : 1955 Planned Disposition: Acute Care Hospital Anticipated Discharge Date: 09/05/18 Discharge Date: 09/05/2018 Expected LOS: 4 Initial Reviewer: [id number] Initial Review Date: 09/02/2018 Generated: 09/06/18 10:15 am Comments DCP- Discharge Planning Updated by [id number]: An Rosas on 09/05/18 1:[address] PATIENT HAS BEEN ACCEPTED BY DR MIRZA AT [facility]. THEY WILL CALL BACK FOR ANY INFORMATION NEEDED. PHYSICIAN CERTIFICATION TRANSFER AUTH FORM COMPLETED BY DR RIVERA, AND PLACED ON THE FRONT OF THE CHART. WILL WAIT FOR [facility] CALL BACK. DCP- Discharge Planning Updated by [email or web address]: An Rosas on 09/05/18 1:[address] @6540NAHID SMITH CAME AND GAVE ME DR YO RIVERA NAME AND PHONE NUMBER FOR THE DOC TO DOC WITH TRANSFER. @ 2295 PLACED A CALL TO THE [facility] PHYSICIAN CALL CENTER ([phone]), SPOKE TO JASSON WHO TOOK THE BASIC INFORMATION AND THEN TRANSFERRED ME TO THE NURSE NEHEMIAH. I ANSWERED ALL HER QUESTIONS AND READ HER EXACTLY WHAT WAS DOCUMENTED IN THE PHYSICIANS NOTES. SHE STILL REQUIRED MORE INFORMATION. SHE STATED THAT SHE WOULD CALL AND SPEAK TO THE DOCTOR BEFORE SHE NOTIFIED HER DOCTOR. AFTER CALL WAS ENDED, I WALKED OVER AND LET DR RIVERA KNOW WHAT SHE HAS SAID. I WILL WAIT FOR A RETURN CALL OR FURTHER INSTRUCTIONS BY DR RIVERA OR NAHID SOLANO APN. DCP- Discharge Planning Updated by [id number]: An Rosas on 09/05/18 12:[address] SHAH CAME TO ME ASKING WHAT THE STATUS IS ON THE PATIENT. I EXPAINED THAT I DID NOT KNOW MUCH, BUT IT WAS DOCUMENTED PT WAITING ON BED AT [facility] AND THEN SHE REFUSED. PER DR LIVERETT, THE PATIENT DID NOT REFUSE, AND THIS HAS BEEN CONFIRMED. WILL WORK ON TRANSFER, BUT FIRST HAVE TO FIGURE OUT WHAT HAS BEEN DONE IN REGARDS TO THIS. I PLACED A CALL TO [employer] COMMUNICATIONS ANALYST, WHO STATED SHE WAS UNAWARE OF THE TRANSFER, BUT GAVE ADMIN AUTH FOR TRANSFER. @3320 I PLACED A CALL TO [facility] KRYSTAL JOAQUIM JAUREGUI TRANSFERRED ME TO THE TRANSFER TEAM AT THE CALL CENTER TO CHECK ON THIS. I SPOKE WITH JASSON WHO STATED SHE DOES NOT SEE THAT ANYTHING HAS BEEN STARTED ON THE PATIENT FOR TRANSFER, BUT THEY WOULD BE GLAD TO ASSIST. I STATED THAT I WAS GOING TO HAVE TO FIGURE OUT WHO WOULD DO THE DOC TO DOC FIRST AND CALL BACK. I PAGED DOUG WHITFIELD AFTER I HUNG UP THE PHONE. @1140 I SPOKE WITH NAHID SOLANO APN FOR [facility]. I ASKED IF DR RIVERA WOULD DO THE DOC TO DOC. NAHID QUESTIONED TO WHY NOTHING HAD BEEN DONE ABOUT THIS LAST WEEK. I EXPLAINED THAT NO ONE TALKED TO ME ABOUT TRANSFER LAST WEEK, THAT THE BEST I KNEW IT WAS INITIATED OVER THE WEEKEND (TRUTH IS, IT WAS DECIDED THAT THE PATIENT NEEDED TO TRANSFER AFTER 1600 ON WEDNESDAY AND I HAD ALREADY LEFT. PER LOUIS MOORE NO ONE DISCUSSED WITH HIM ABOUT TRANSFERRING AND THERE WAS NO ORDER PUT IN FOR CASEMANAGEMENT TO TRANSFER- SO I AM UNSURE WHO DR GONZALES TALKED TO OVER THE WEEKEND THAT SAID WE WERE JUST WAITING ON A BED HE DOCUMENTED IN HIS NOTE). NAHID STATED THAT THE PATIENT WAS NEW TO THEM AND THEY WERE GOING TO HAVE TO LOOK AT THE PATIENT FIRST AND THEY WOULD HAVE TO LET ME KNOW. I WILL WAIT FOR FURTHER INSTRUCTION IN REGARDS TO TRANSFER. DCP- Discharge Planning Updated by [id number]: Jose Lee on 09/02/18 4:[address] Patient Name: ANGELICA LEE Admission Status: Elective Accout number: [id number] Admission Date: 09-01-2018 : 1955 Admission Diagnosis:NONTRAUMATIC SUBDURAL HEMORRHAGE, UNSPECIFIED Attending: COOKIE TAN Current LOS: 1 Anticipated DC Date: Planned Disposition: Home Primary Insurance: [facility] MEDICARE SOLUTIONS Discharge Planning Comments: CM RECEIVED ORDER STATING TO CONTACT PT'S HOME HEALTH PROVIDER. CM MET WITH PT IN ROOM TO DISCUSS DISCHARGE PLANNING AND NEEDS. PT REPORTS LIVING AT HOME INDEPENDENTLY AND ALONE. PT HAS NO MEDICAL EQUIPMENT AND NO OUTSIDE SERVICES ASSISTING IN THE HOME. CM DISCUSSED AVAILABILITY OF HOME HEALTH, REHAB SERVICES AND MEDICAL EQUIPMENT. PT DOES NOT HAVE HOME HEALTH. PT DENIES DISCHARGE NEEDS, STATES HER INSURANCE HOUSECALLS NURSE HAS APPOINTMENT NEXT WEEK AND WOULD LIKE CM TO CANCEL IT PT IS IN THE HOSPITAL. PT REPORTS SHE WILL HAVE TO TAKE A CAB HOME AT DISCHARGE. PT STATES SHE HAS NO SUPPORT SYSTEM AND THAT HER FAMILY HAS "DISOWNED" HER. CM CALLED [facility], , CANCELLED PT'S HOME NURSE VISIT SCHEDULE FOR 09-06-18. PT PLANS TO DISCHARGE HOME ALONE, DENIES DISCHARGE NEEDS AT THIS TIME, WILL TAKE TAXI HOME. CM TO FOLLOW AND ASSIST IF NEEDED. Hr Director: Jose Lee DCPIA - Discharge Planning Initial Assessment Updated by [id number]: Jose Lee on 09/02/18 5:36 pm * Is the patient Alert and Oriented? Yes * How many steps to enter\\exit or inside your home? ELEVATOR * PCP DR. TAN * Pharmacy [facility] * Preadmission Environment Home Alone * ADLs Independent * Equipment None * Other Equipment NO MEDICAL EQUIPMENT PROVIDER PREFERENCE * List name and contact numbers for known caregivers / representatives who currently or will assist patient after discharge: FRANCESCO FENTON, BROTHER IN LAW, PHONE UNKNOWN, LIVES IN [place] * Verbal permission to speak to the caregivers and representatives has been obtained from the patient. N/A * Community resources currently utilized None * Please name any agencies selected above. NONE * Additional services required to return to the preadmission environment? No * Can the patient safely return to the preadmission environment? Yes * Has this patient been hospitalized within the prior 30 days at any hospital? No Last DP export: 09/05/18 1:55 p Patient Name: ANGELICA LEE Page [id number] at 0915 All edits/amendments must be made on the electronic document DICTATION DATE: 09/06/18913 FOOD BAGGING MACHINE OPERATOR: TJ 09/06/18913 RPT#: [id number] DC DATE:09/05/18 STATUS: DIS IN [place] [id number] [place] [address] END OF REPORT
[2018-09-09 16:09] LABS: AEROBE ID Final report (())
== END 2018-09-05 22:05 | disposition short-term general hospital (02) | DRG 64 ==
LOC: D.M2 17:09
PROVIDERS: Internal Medicine Nephrology; ADMIT Family Medicine; ATTEND Family Medicine
DX: I62.00 Nontraumatic subdural hemorrhage, unspecified (principal); J18.9 Pneumonia, unspecified organism; B00.9 Herpesviral infection, unspecified; L98.9 Disorder of the skin and subcutaneous tissue, unspecified; K13.70 Unspecified lesions of oral mucosa; E87.6 Hypokalemia; E83.42 Hypomagnesemia